=== PATIENT | female | born 1995 | race Caucasian/White ===

== ENCOUNTER 2018-02-25 12:59 | Emergency (ER) | payer OTHER ==
[~2018-02-25] VITALS: Ht 162.6 cm; Wt 60.3 kg
[2018-02-25 13:06] VITALS: BP 120/59
--- NOTE | 2018-02-25 13:10 | NUR ---
Note man in ED - 02/25/18 at 1310 by [email or web address] pt ambualtes to bed 9 at this time w/ even, steady gait. report given to anai cooley
--- NOTE | 2018-02-25 13:10 | NUR ---
pt ambualtes to bed 9 at this time w/ even, steady gait. report given to anai Mcmanus
--- NOTE | 2018-02-25 13:15 | NUR ---
23 yo f bib self w/ c/o bilateral lower back pain x 2 days. just finshed her period and the pain began. denies n/v. Pt denies injury or trauma to the site. pt aaox4, gcs 15, cms intact. rr even and unlabored, lungs bilaterally clear. abd soft, non-tender. bowel sounds active x 4 quadrants. pt is ambulatory w/ even, steady gait. pt positioned to comfort. all needs met at this time. awaiting er md uribe.
[2018-02-25] MEDS ORDERED: KETOROLAC 60 MG/2 ML VIAL IM ONE (13:20)
[2018-02-25] MEDS ORDERED: MORPHINE SULFATE 2 MG/ML SYR IM ONE (13:20)
[2018-02-25 14:06] LABS: BARBITURATE, URINE NEG. ng/ml (NEG <=200); BENZODIAZEPINE, URINE NEG. ng/mL (NEG <=200); CANNABINOID, URINE NEG. ng/mL (NEG <=50); COCAINE, URINE NEG. ng/mL (NEG <=300); OPIATE, URINE NEG. ng/mL (NEG <=2000); PHENCYCLIDINE SCREEN,URINE NEG. ng/mL (NEG <=25)
[2018-02-25 14:14] LABS: APPEARANCE,URINE CLEAR (CLEAR); BILIRUBIN,URINE NEGATIVE (NEGATIVE); BLOOD, URINE 2+ (NEGATIVE); COLOR,URINE YELLOW (YELLOW); LEUKOCYTE ESTERASE ,URINE NEGATIVE (NEGATIVE); NITRITE, URINE NEGATIVE (NEGATIVE); PH,URINE 6.5 (5.0-9.0); UGLUCOSE NEGATIVE (NEGATIVE)
[2018-02-25 14:20] LABS: RBC,URINE 0-5 (RARE) /HPF (0-5)
[2018-02-25 14:21] LABS: WBC,URINE 0-5 (RARE) /HPF (0-5)
[2018-02-25 14:53] VITALS: BP 120/59
== END 2018-02-25 14:54 | disposition home or self-care (01) ==
LOC: MED 12:59
DX: S33.5XXA Sprain of ligaments of lumbar spine, initial encounter (principal); X58.XXXA Exposure to other specified factors, initial encounter; Y93.89 Activity, other specified; Y92.89 Other specified places as the place of occurrence of the external cause; Y99.8 Other external cause status
CPT/HCPCS: 80305; 81001; 81025; 96372; 99284; J1885; J2270

== ENCOUNTER 2022-11-03 13:40 | Emergency (ER) | payer OTHER ==
[~2022-11-03] VITALS: Ht 157.5 cm; Wt 61.2 kg
[2022-11-03 14:00] VITALS: BP 111/76
[2022-11-03] MEDS ORDERED: AMOX500C25 PO (14:25)
[2022-11-03] MEDS ORDERED: IBUP-1842 PO (14:25)
== END 2022-11-03 14:33 | disposition home or self-care (01) ==
LOC: MED 13:40
DX: H66.91 Otitis media, unspecified, right ear (principal); Z79.1 Long term (current) use of non-steroidal anti-inflammatories (NSAID); Z79.2 Long term (current) use of antibiotics
CPT/HCPCS: 99283

== ENCOUNTER 2023-05-19 13:23 | Emergency (ER) | payer OTHER ==
[~2023-05-19] VITALS: Ht 160 cm; Wt 57.6 kg
[~2023-05-19 13:23] MED LIST: AMOX500C25 PO; IBUP-1842 PO
[2023-05-19 13:38] VITALS: BP 125/56; PULSE 63; RESP 15; TEMP 97.5; O2SAT 98
[2023-05-19] MEDS ORDERED: KETOROLAC 30 MG/ML VIAL IM ONE (14:10)
[2023-05-19] MEDS ORDERED: METOCLOPRAMIDE 10 MG TAB PO ONE (14:10)
[2023-05-19] MEDS ORDERED: KETOROLAC 30 MG/ML VIAL ONE (15:37)
[2023-05-19] MEDS ORDERED: METOCLOPRAMIDE 10 MG TAB ONE (15:38)
[2023-05-19] MEDS ORDERED: NACL 0.9% 1,000 ML IV ONE (16:30)
[2023-05-19] MEDS ORDERED: PROCHLORPERAZINE 10 MG/2 ML VIAL IVP ONE (16:30)
[2023-05-19] MEDS ORDERED: ONDA-188 PO (17:41)
[2023-05-19] MEDS ORDERED: NAPR-54 PO (17:41)
== END 2023-05-19 17:58 | disposition home or self-care (01) ==
LOC: MED 13:23
DX: R51.9 Headache, unspecified (principal); Z79.899 Other long term (current) drug therapy
CPT/HCPCS: 70450; 81025; 96372; 99285; J1885; J8597; Q0163